=== PATIENT | female | born 1980 | race African-American/Black ===

== ENCOUNTER 2018-05-16 08:42 | Inpatient (IN) | payer MEDICAID ==
[2018-05-16 10:43] LABS: WHITE BLOOD COUNT 9.2 10^3/ul (4.8-10.8)
[2018-05-16 10:43] LABS: ADD MAN DIFF? NO; BASOPHILS % 0.3 % (0.0-2.0); EOSINOPHILS # 0.1 10^3/ul (0.0-0.5); EOSINOPHILS % 1.3 % (0.0-7.0); HEMATOCRIT 36.5 % (37.0-47.0); HEMOGLOBIN 12.5 g/dl (12.0-16.0); LYMPHOCYTES # 1.6 10^3/ul (0.8-2.9); LYMPHOCYTES % 17.7 % (15.0-51.0); MEAN CORPUSCULAR HGB CONC 34.2 g/dl (32.0-37.0); MEAN CORPUSCULAR VOLUME 87.7 fl (82.0-101.0); MEAN PLATELET VOLUME 11.2 fl (7.4-10.4); MONOCYTE # 0.7 10^3/ul (0.3-0.9); MONOCYTES % 7.3 % (0.0-11.0); NEUTROPHIL # 6.7 10^3/ul (1.6-7.5); NEUTROPHILS % 72.9 % (39.0-77.0); PLATELET COUNT 172 10^3/UL (140-415); RED BLOOD COUNT 4.16 10^6/ul (4.20-5.40); RED CELL DISTRIBUTION WIDTH 13.7 % (11.5-14.5)
[2018-05-16] MEDS: OXYTOCIN 30 UNITS/LR 500 ML IV ×3 (10:56→20:37)
[2018-05-16] MEDS ORDERED: OXYTOCIN 30 UNITS/LR 500 ML IV ×2 (11:00→23:00)
[2018-05-16] MEDS ORDERED: LIDOCAINE 1% (MPF) 30 ML INJ INJ (11:00)
[2018-05-16] MEDS ORDERED: CARBOPROST 250 MCG INJ IM ×2 (11:00→23:00)
[2018-05-16] MEDS ORDERED: METHYLERGONOVINE 0.2 MG INJ IM ×2 (11:00→23:00)
[2018-05-16] MEDS ORDERED: MISOPROSTOL 200 MCG TAB PR ×2 (11:00→23:00)
[2018-05-16 11:19] LABS: INR 0.89; PARTIAL THROMBOPLASTIN TIME 26.2 Sec (23.0-35.0); PROTIME 12.1 Sec (11.9-14.9); PT RATIO 0.9
[2018-05-16] MEDS: LACTATED RINGER'S 1,000 ML IV ×3 (12:58→18:19)
[2018-05-16] MEDS ORDERED: FENTAnyl 2MCG/ML-ROPIV 0.2% 100 ML (14:53)
[2018-05-16] MEDS ORDERED: NALOXONE (0.4 MG/ML) INJ IV (15:00)
[2018-05-16] MEDS ORDERED: ONDANSETRON 4 MG INJ IV (15:00)
[2018-05-16] MEDS ORDERED: DIPHENHYDRAMINE 50 MG INJ IV (15:00)
[2018-05-16] MEDS: FENTAnyl 2MCG/ML-ROPIV 0.2% 100 ML BAG EPI (15:05)
[2018-05-16 16:04] LABS: RAPID PLASMA REAGIN NONREACTIVE (NR)
[2018-05-16] MEDS: DEXTROSE 5%-LR 1,000 ML IV (19:00)
[2018-05-16] MEDS: MINERAL OIL LIGHT 10 ML VIAL TOP (19:30)
[2018-05-16 19:52] LABS: HEPATITIS B SURFACE ANTIGEN NEGATIVE (NEGATIVE)
[2018-05-16] MEDS: IBUPROFEN 600 MG TAB PO (22:09)
[2018-05-16] MEDS: LACTATED RINGER'S 1,000 ML IV* (22:38)
[2018-05-16] MEDS ORDERED: LANOLIN HPA 1 PKT TOP (23:00)
[2018-05-16] MEDS ORDERED: ACETAMINOPHEN 325 MG TAB PO (23:00)
[2018-05-16] MEDS ORDERED: DIPHENHYDRAMINE 25 MG CAP PO (23:00)
[2018-05-16] MEDS ORDERED: HYDROCODONE/APAP (5/325) TAB PO (23:00)
[2018-05-16] MEDS ORDERED: WITCH HAZEL/GLYCERIN PAD PR (23:00)
[2018-05-16] MEDS ORDERED: SENNA/DOCUSATE NA (8.6MG/50MG) TAB PO (23:00)
[2018-05-16] MEDS ORDERED: BENZOCAINE 20% 56 ML SPRAY TOP (23:00)
[2018-05-16] MEDS ORDERED: ZOLPIDEM 5 MG TAB PO (23:00)
[2018-05-16] MEDS ORDERED: MAGNESIUM HYDROXIDE 30ML CUP PO (23:00)
[2018-05-17] MEDS: OXYTOCIN 30 UNITS/LR 500 ML IV (00:40)
[2018-05-17] MEDS: IBUPROFEN 800 MG TAB PO ×5 (05:42→23:32)
[2018-05-17 08:56] LABS: ADD MAN DIFF? NO
[2018-05-17 09:00] LABS: BASOPHILS % 0.3 % (0.0-2.0); EOSINOPHILS # 0.2 10^3/ul (0.0-0.5); EOSINOPHILS % 1.3 % (0.0-7.0); HEMATOCRIT 34.2 % (37.0-47.0); HEMOGLOBIN 11.7 g/dl (12.0-16.0); LYMPHOCYTES # 1.4 10^3/ul (0.8-2.9); LYMPHOCYTES % 10.3 % (15.0-51.0); MEAN CORPUSCULAR HEMOGLOBIN 29.5 pg (29.0-33.0); MEAN CORPUSCULAR HGB CONC 34.2 g/dl (32.0-37.0); MEAN CORPUSCULAR VOLUME 86.1 fl (82.0-101.0); MEAN PLATELET VOLUME 11.4 fl (7.4-10.4); MONOCYTE # 0.8 10^3/ul (0.3-0.9); MONOCYTES % 5.8 % (0.0-11.0); NEUTROPHIL # 10.8 10^3/ul (1.6-7.5); NEUTROPHILS % 81.5 % (39.0-77.0); PLATELET COUNT 152 10^3/UL (140-415); RED BLOOD COUNT 3.97 10^6/ul (4.20-5.40); RED CELL DISTRIBUTION WIDTH 13.5 % (11.5-14.5)
[2018-05-17 09:00] LABS: WHITE BLOOD COUNT 13.2 10^3/ul (4.8-10.8)
[2018-05-18] MEDS: IBUPROFEN 800 MG TAB PO ×2 (05:24→12:22)
[2018-05-18] MEDS: VARICELLA VACCINE LIVE/PF 1,350 UNIT/0.5 ML ML SC* (09:00)
[2018-05-18] MEDS: DIPHTH/TET/ACEL PERTUSS (ADULT) 0.5 ML VIAL IM* (09:00)
[2018-05-18] MEDS: MEASLES,MUMPS,RUBELLA VACCINE INJ SC* (09:00)
== END 2018-05-18 18:12 | disposition home or self-care (01) | DRG 807 ==
LOC: OBT 08:42 → L-D 08:42 → OBT 08:56 → L-D 08:53 → PP1 22:11
PROVIDERS: Obstetrics & Gynecology
PROC: 10E0XZZ Delivery of Products of Conception, External Approach (ICD-10-PCS; principal; 2018-05-16)
PROC: 0HQ9XZZ Repair Perineum Skin, External Approach (ICD-10-PCS; 2018-05-16)
DX: O77.0 Labor and delivery complicated by meconium in amniotic fluid (principal); Z37.0 Single live birth; O70.9 Perineal laceration during delivery, unspecified; R22.43 Localized swelling, mass and lump, lower limb, bilateral; Z3A.40 40 weeks gestation of pregnancy
CPT/HCPCS: 76816; 85025; 85610; 85730; 86592; 86850; 86900; 86901; 87340; 88307; 90716; 93971; 99464